=== PATIENT | male | born 1970 | race Two or more races ===

== ENCOUNTER 2024-05-24 13:23 | Emergency (ER) | payer OTHER ==
[~2024-05-24] VITALS: Ht 157.5 cm; Wt 77.1 kg
[2024-05-24] MEDS ORDERED: diphenhydrAMINE HCL 50 MG/ML VIAL ONE (14:52)
[2024-05-24] MEDS ORDERED: METOCLOPRAMIDE HCL 10 MG/2 ML VIAL ONE (14:52)
[2024-05-24] MEDS ORDERED: ACETAMINOPHEN ES 500 MG TABLET ONE (14:52)
[2024-05-24] MEDS: diphenhydrAMINE HCL 50 MG/ML VIAL IV ONE (15:16)
[2024-05-24] MEDS: METOCLOPRAMIDE HCL 10 MG/2 ML VIAL IV ONE (15:16)
[2024-05-24] MEDS: ACETAMINOPHEN ES 500 MG TABLET PO ONE (15:17)
[2024-05-24] MEDS: IV NS 0.9% 1,000 ML BAG IV ONE (15:17)
[2024-05-24] MEDS ORDERED: IBUP-1955 PO (15:59)
[2024-05-24] MEDS: KETOROLAC TROMETHAMINE 15 MG/ML VIAL IV ONE (16:09)
[2024-05-24] MEDS ORDERED: KETOROLAC TROMETHAMINE 15 MG/ML VIAL ONE (16:11)
[2024-05-24 16:12] VITALS: BP 128/68; TEMP 98.1; O2SAT 94
== END 2024-05-24 16:13 | disposition home or self-care (01) ==
LOC: ER 13:28
DX: S06.0X0A Concussion without loss of consciousness, initial encounter (principal); R11.2 Nausea with vomiting, unspecified; W01.0XXA Fall on same level from slipping, tripping and stumbling without subsequent striking against object, initial encounter; Y93.89 Activity, other specified; Y92.89 Other specified places as the place of occurrence of the external cause; Y99.8 Other external cause status
CPT/HCPCS: 99285; 96374; 70450; 96375; 96361; J1885; J1200; J2765; J7030